=== PATIENT | female | born 1990 | race Hispanic/Latino ===

== ENCOUNTER 2023-12-08 14:02 | Outpatient (CLI) | payer OTHER | END 2023-12-08 14:03 | disposition home or self-care (01) | LOC: NAV RAD 14:02 | PROVIDERS: ATTEND Family Medicine | DX: M25.571 Pain in right ankle and joints of right foot (principal); M19.071 Primary osteoarthritis, right ankle and foot; M79.89 Other specified soft tissue disorders; S82.51XA Displaced fracture of medial malleolus of right tibia, initial encounter for closed fracture; Z87.81 Personal history of (healed) traumatic fracture ==